=== PATIENT | female | born 1990 | race Caucasian/White ===

== ENCOUNTER → 2021-09-29 | Outpatient (REF) | LOC: M LABSMTC 09:33 | PROVIDERS: ATTEND Pediatrics | DX: Z20.822 Contact with and (suspected) exposure to COVID-19 (principal) ==

== ENCOUNTER 2022-09-14 08:55 | Day surgery (SDC) | payer OTHER ==
[~2022-09-14] VITALS: Ht 175.3 cm; Wt 82.5 kg
[~2022-09-14 08:55] MED LIST: B-COTAB10 PO; K2 P1TAB PO; LINZ145C PO; SUMA25TA3 PO
[2022-09-14] MEDS ORDERED: LR 1,000 ML IV SCH ×2 (09:20→12:20)
[2022-09-14] MEDS ORDERED: SCOPOLAMINE 1MG TRANSDERMAL PATCH TOP ONE (09:45)
[2022-09-14] MEDS ORDERED: EPINEPHrine 1MG/ML INJ 30ML MD-VIAL As Ordered ONE (10:24)
[2022-09-14] MEDS ORDERED: LIDOCAINE W/EPINEPHRINE 1% 20ML VIAL As Ordered ONE (10:24)
[2022-09-14] MEDS ORDERED: METHYLENE BLUE 0.5% (5MG/ML) 10 ML AMP (PROVAYBLUE) As Ordered ONE (10:24)
[2022-09-14] MEDS ORDERED: MIDAZOLAM INJ 2MG/2ML VIAL As Ordered ONE (10:54)
[2022-09-14] MEDS ORDERED: fentaNYL 100 MCG/2 ML INJECTION As Ordered ONE ×2 (10:54→11:20)
[2022-09-14] MEDS ORDERED: ONDANSETRON 4MG 2ML VIAL As Ordered ONE (10:54)
[2022-09-14] MEDS ORDERED: SUGAMMADEX SODIUM 500 MG/5 ML VIAL (BRIDION) As Ordered ONE (10:54)
[2022-09-14] MEDS ORDERED: ROCURONIUM BROMIDE 50MG/5ML VIAL As Ordered ONE (10:54)
[2022-09-14] MEDS ORDERED: propofoL 200 MG/20 ML VIAL As Ordered ONE (10:54)
[2022-09-14] MEDS ORDERED: LIDOCAINE 2% 100MG/5ML SDV (FOR ANES.) As Ordered ONE (10:54)
[2022-09-14] MEDS ORDERED: METOCLOPRAMIDE INJ 10MG/2ML VIAL As Ordered ONE (10:54)
[2022-09-14] MEDS ORDERED: ACETAMINOPHEN 1000MG 100ML IV BAG As Ordered ONE (10:55)
[2022-09-14] MEDS ORDERED: ePHEDrine SULFATE 25 MG/5 ML(5MG/ML) SYRINGE As Ordered ONE (10:55)
[2022-09-14] MEDS ORDERED: fentaNYL 100 MCG/2 ML INJECTION IV PRN (12:10)
[2022-09-14] MEDS ORDERED: ONDANSETRON 4MG 2ML VIAL IV PRN (12:10)
[2022-09-14] MEDS ORDERED: METOCLOPRAMIDE INJ 10MG/2ML VIAL IV PRN (12:10)
[2022-09-14] MEDS: oxyCODONE 5MG TAB PO PRN ×2 (12:18→13:09)
[2022-09-14] MEDS: HYDROMORPHONE HCL 0.5 MG/ 0.5 ML SYRINGE IV PRN ×3 (12:19→12:37)
[2022-09-14] MEDS ORDERED: PROMETHAZINE 25MG/ML 1ML VIAL IV PRN (12:55)
[2022-09-14 15:35] VITALS: BP 126/64
== END 2022-09-14 16:05 | disposition home or self-care (01) ==
LOC: M SDC 08:55
PROVIDERS: ATTEND Otolaryngology
DX: J34.2 Deviated nasal septum (principal); J34.89 Other specified disorders of nose and nasal sinuses; M95.0 Acquired deformity of nose
CPT/HCPCS: 30465; 30520; 81025; J1100; J2405

== ENCOUNTER → 2023-08-20 | Outpatient (REF) | LOC: M EMP 12:02 | PROVIDERS: ATTEND Family Medicine | DX: Z11.52 Encounter for screening for COVID-19 (principal) ==